=== PATIENT | female | born 1990 | race Hispanic/Latino ===

== ENCOUNTER 2016-10-14 07:08 | Inpatient (IN) | payer OTHER ==
[2016-10-14 07:16] VITALS: BMI 25.2
--- NOTE | 2016-10-14 07:56 | ED PDOC ---
HPI: Abdomen Chief Complaint (Provider): abd pain History Per: Patient History/Exam Limitations: no limitations Outside of [place] travel?: No Current Symptoms Are (Timing): Still Present Severity: Moderate Location Of Pain/Discomfort: RUQ, Epigastric Quality Of Discomfort: Sharp Associated Symptoms: Constipation Exacerbating Factors: None Alleviating Factors: None Last Bowel Movement: Days Ago (3) Abnormal Vaginal Bleeding: No <William Irby - Last Filed: 10/14/16 11:00> <Sarbjit Shelley - Last Filed: 10/14/16 11:37> Time Seen by Provider: 10/14/16 07:13 Chief Complaint (Nursing): Abdominal Pain Additional Complaint(s): 25 y/o F with no PMhx presents c/o epigastric and RUQ pain for the past 3 days associated with constipation. Pain radiates to the back and is constant and sharp. She admits Hx of similar pain in the past and gallstones. Denies vomiting , nausea, constipation, diarrhea, headaches, SOB, dysuria,or CP. Can't recall LMP because she has an IUD and is not having periods since. (William Irby) Supervising Attending Note <William Irby - Last Filed: 10/14/16 11:00> - Supervising Attending Note The Documented history was done by the: Physician Medical Education Coordinator The documented physical exam was done by the: Physician Medical Education Coordinator The documented procedures were done by the: Physician Medical Education Coordinator <Sarbjit Shelley - Last Filed: 10/14/16 11:37> - Notes: Notes:: RUQ pain. Hx gallstones. No chest pain. (Sarbjit Shelley) Past Medical History Reviewed: Nursing Documentation, Vital Signs - Medical History PMH: No Chronic Diseases, Gall Bladder Disease (cholelithiasis) - Surgical History Surgical History: Appendectomy Other surgeries: ankle repair - Family History Family History: States: No Known Family Hx - Social History Current smoker - smoking cessation education provided: No Alcohol: Occasional Drugs: Denies <William Irby - Last Filed: 10/14/16 11:00> - Medical History PMH: Gall Bladder Disease <Sarbjit Shelley - Last Filed: 10/14/16 11:37> Vital Signs: Last Vital Signs Temp 97 F L 10/14/16 07:14 Pulse 80 08/15/17 07:14 Resp BP 117/72 10/14/16 07:14 Pulse Ox 99 10/14/16 11:01 - Allergies Allergies/Adverse Reactions: Allergies Allergy/AdvReac Type Severity Reaction Status Date / Time No Known Allergies Allergy Verified 10/14/16 07:33 Review of Systems ROS Statement: Except As Marked, All Systems Reviewed And Found Negative Gastrointestinal: Positive for: Abdominal Pain, Constipation <William Irby - Last Filed: 10/14/16 11:00> Gastrointestinal: Positive for: Abdominal Pain <Sarbjit Shelley - Last Filed: 10/14/16 11:37> Physical Exam - Reviewed Nursing Documentation Reviewed: Yes Vital Signs Reviewed: Yes - Physical Exam Appears: Positive for: Non-toxic, No Acute Distress Head Exam: Positive for: NORMAL INSPECTION Skin: Positive for: Normal Color, Warm Eye Exam: Positive for: EOMI, PERRL Cardiovascular/Chest: Positive for: Regular Rate, Rhythm. Negative for: Gallop , Murmur Respiratory: Positive for: Normal Breath Sounds. Negative for: Crackles, Wheezing Gastrointestinal/Abdominal: Positive for: Soft, Tenderness (mild tender, RUQ and epigastric). Negative for: Distended, Guarding, Rebound Back: Positive for: Normal Inspection. Negative for: L CVA Tenderness, R CVA Tenderness Neurologic/Psych: Positive for: Alert, Oriented. Negative for: Motor/Sensory Deficits <William Irby - Last Filed: 10/14/16 11:00> - Physical Exam Cardiovascular/Chest: Positive for: Regular Rate, Rhythm Respiratory: Positive for: Normal Breath Sounds Gastrointestinal/Abdominal: Positive for: Tenderness (RUQ) <Sarbjit Shelley - Last Filed: 10/14/16 11:37> - Laboratory Results Result Diagrams: 10/14/16 08:52 10/14/16 08:52 - ECG O2 Sat by Pulse Oximetry: 99 <William Irby - Last Filed: 10/14/16 11:00> - Laboratory Results Result Diagrams: 10/14/16 08:52 10/14/16 08:52 Interpretation Of Abn Labs: ast/alt elevation - ECG Pulse Ox Interpretation: Normal - CT Scan/US us Other Rad Studies (CT/US): Radiology Report Reviewed <Sarbjit Shelley - Last Filed: 10/14/16 11:37> - Progress ED Course And Treament: ALT/AST, AP elevated. Patient still c/o pain when revaluated. Official US report pending but the is thickening of GB wall suggesting poss cholecystitis. After discussing with patient and Sx, she is decided to be admitted to hosp for further management. Patient stable. VS WNL (William Irby) [id number]: Stable. Spoke with Dr. Fischer. States admit if pt. is not feeling better or uncomfortable with outpt management. Pt. still in pain so will need more inpt tx/eval. Spoke with Dr. Ford who will admit. (Sarbjit Shelley) Medical Decision Making <William Irby - Last Filed: 10/14/16 11:00> <Sarbjit Shelley - Last Filed: 10/14/16 11:37> Medical Decision Makin25 y/o F with Hx of gallstones, presents c/o RUQ and epigastric pain associated with constipation Biliary colic vs Renal colic vs Constipation test UA Abd US Toradol IM CBC, CMP, Lipase (William Irby) Disposition - Disposition Disposition Time: 11:00 <William Irby - Last Filed: 10/14/16 11:00> - Patient ED Disposition Is Patient to be Admitted: Yes Counseled Patient/Family Regarding: Studies Performed, Diagnosis - Pt Status Changed To: Hospital Disposition Of: Inpatient - Admit Certification Admit to Inpatient:: After my assessment, the patient will require hospitalization for at least two midnights. This is because of the severity of symptoms shown, intensity of services needed, and/or the medical risk in this patient being treated as an outpatient. - POA Present On Arrival: None <Sarbjit Shelley - Last Filed: 10/14/16 11:37> - Clinical Impression Clinical Impression: Cholecystitis - Disposition Condition: FAIR
[2016-10-14] MEDS ORDERED: Sodium Chloride 0.9% 1,000 ML IV STA (07:57)
[2016-10-14 08:57] LABS: BASO % 0.5 % (0.0-2.0); EOS # 0.1 K/uL (0.0-0.7); HEMATOCRIT 36.2 % (34.0-47.0); LYMPH # 1.4 K/uL (1.0-4.3); LYMPH % 34.9 % (20.0-40.0); MEAN CELL VOLUME 90.2 fl (81.0-99.0); MEAN CORPUSCULAR HEMOGLOBIN 31.1 pg (27.0-31.0); MEAN CORPUSCULAR HGB CONC 34.5 g/dL (33.0-37.0); MEAN PLATELET VOLUME 8.3 fl (7.2-11.7); MONO # 0.4 K/uL (0.0-0.8); NEUT # 2.1 K/uL (1.8-7.0); NEUT % 52.6 % (50.0-75.0); NRBC % 0.1 % (0.0-0.0); RED CELL DISTRIBUTION WIDTH 12.3 % (11.5-14.5); WHITE BLOOD COUNT 3.9 K/uL (4.8-10.8)
[2016-10-14 09:15] LABS: ALB/GLOB RATIO 1.6 (1.0-2.1); ALKALINE PHOSPHATASE 159 U/L (38-126); ALT/SGPT 292 U/L (9-52); AST/SGOT 187 U/L (14-36); BILIRUBIN,TOTAL 1.2 mg/dl (0.2-1.3); BLOOD UREA NITROGEN 11 mg/dl (7-17); CALCIUM 9.3 mg/dL (8.4-10.2); CARBON DIOXIDE 23 mmol/L (22-30); CHLORIDE 106 mmol/L (98-107); GFR AFRICAN-AMERICAN > 60; GLUCOSE,RANDOM 91 mg/dL (65-105); LIPASE 200 U/L (23-300); POTASSIUM 4.6 MMOL/L (3.6-5.0); SODIUM 139 mmol/l (132-148); TOTAL PROTEIN 7.1 G/DL (6.3-8.2)
[2016-10-14] MEDS ORDERED: Piperacillin/Tazobact 3.375 GM in Sodium Chloride 0.9% 100 ML IV STA (11:04)
[2016-10-14] MEDS ORDERED: Piperacillin/Tazobact 3.375 gm Inj IVPB ONE ×2 (11:10→11:30)
[2016-10-14 11:36] LABS: VENOUS BLOOD GAS BASE EXCESS -1.5 mmol/L (0.0-2.0); VENOUS BLOOD GAS PCO2 44 mmHg (40-60); VENOUS BLOOD PH 7.35 (7.32-7.43)
[2016-10-14] MEDS: Sodium Chloride 0.9% 1,000 ML IV SCH ×2 (12:24→22:19)
--- NOTE | 2016-10-14 12:25 | CP.PCM.CON ---
History of Present Illness - History of Present Illness History of Present Illness: Surgery consult 25 y/o F with PSH of appendectomy , R ankle surgery PMH of cholelithiasis , DVT presents to ED with RUQ and epigatric pain. Pain started 3 days ago and is constant, radiates to her R back. reports anorexia. Nothing makes it better or worse. Denies hematuria/hematemesis/dysuria/hematochezia/F/C/N/V/D/CP/SOB/ recent travel/sick contact. Pt reports having similar symptoms in the pasts with biliary colic. No leukocytosis. US shows large multiple gallstones. Surgery is consulted to evaluate for symptomatic cholelithiasis. Review of Systems - Review of Systems Review of Systems: See HPI Past Patient History - Past Social History Alcohol: Occasional Drugs: Denies - HEMATOLOGICAL/ONCOLOGICAL Other/Comment: DVT - GASTROINTESTINAL Hx Gall Bladder Disease: Yes - PSYCHIATRIC Hx Substance Use: No - SURGICAL HISTORY Hx Appendectomy: Yes - ANESTHESIA Hx Anesthesia: Yes Meds Allergies/Adverse Reactions: Allergies Allergy/AdvReac Type Severity Reaction Status Date / Time No Known Allergies Allergy Verified 10/14/16 07:33 - Medications Medications: Current Medications Piperacillin Sod/Tazobactam (Sod 3.375 gm/ Sodium Chloride) 100 mls @ 100 mls/ hr IVPB Q6 JEAN Sodium Chloride (Sodium Chloride 0.9%) 1,000 mls @ 75 mls/hr IV .[id number] [facility] Stop: 10/15/16 12:05 Ketorolac Tromethamine (Toradol) 15 mg IVP Q6 PRN PRN Reason: Pain, moderate (4-7) Ketorolac Tromethamine (Toradol) 30 mg IVP Q6 PRN PRN Reason: Pain, severe (8-10) Ondansetron HCl (Zofran Inj) 4 mg IVP Q6 PRN PRN Reason: Nausea/Vomiting Physical Exam - Constitutional Appears: No Acute Distress - Head Exam Head Exam: ATRAUMATIC, NORMAL INSPECTION, NORMOCEPHALIC - Eye Exam Eye Exam: EOMI, Normal appearance, PERRL Pupil Exam: NORMAL ACCOMODATION, PERRL - ENT Exam ENT Exam: Mucous Membranes Moist, Normal Exam - Neck Exam Neck exam: Positive for: Normal Inspection - Respiratory Exam Respiratory Exam: Clear to Auscultation Bilateral, NORMAL BREATHING PATTERN - Cardiovascular Exam Cardiovascular Exam: REGULAR RHYTHM - GI/Abdominal Exam GI & Abdominal Exam: Normal Bowel Sounds, Soft, Tenderness. absent: Distended, Firm, Guarding, Hernia, Rigid Additional comments: Epigastric/RUQ TTP - Extremities Exam Extremities exam: Positive for: full ROM, normal inspection. Negative for: tenderness - Back Exam Back exam: FULL ROM, NORMAL INSPECTION. absent: CVA tenderness (L), CVA tenderness (R) - Neurological Exam Neurological exam: Alert, CN II-XII Intact, Normal Gait, Oriented x3, Reflexes Normal - Psychiatric Exam Psychiatric exam: Normal Affect, Normal Mood - Skin Skin Exam: Dry, Intact, Normal Color, Warm Results - Vital Signs Recent Vital Signs: Last Vital Signs Temp 97 F L 10/14/16 07:14 Pulse 80 10/14/16 07:14 Resp BP 117/72 10/14/16 07:14 Pulse Ox 99 10/14/16 11:01 - Labs Result Diagrams: 10/14/16 08:52 10/14/16 08:52 Assessment & Plan - Assessment and Plan (Free Text) Assessment: Symptomatic cholelithiasis US: multiple large gallstones -OR Wed for Lap roc -NPO after midnight -IVF DW Dr. Fischer
[2016-10-14] MEDS ORDERED: HYDROmorphone 0.5 mg/0.5 ml ISec IVP PRN (12:32)
[2016-10-14] MEDS ORDERED: Iohexol 240 (50 ml) PO ONE (12:35)
[2016-10-14] MEDS ORDERED: Iohexol 240 (50 ml) ONE (12:48)
--- NOTE | 2016-10-14 14:30 | US ---
HISTORY: eval for pain RUQ COMPARISON: None. TECHNIQUE: Grayscale imaging was performed. FINDINGS: LIVER: Measures 14.9 cm in length. Normal echogenicity of the liver parenchyma. There is mild periportal edema and multiple echogenic foci with ring down artifact in the liver. No mass. No intrahepatic bile duct dilatation. GALLBLADDER: The gallbladder is distended and there are multiple gallstones. There is mild gallbladder wall thickening and positive sonographic Nunez's sign. There are multiple echogenic foci along the gallbladder wall with ring down artifact most compatible with adenomyomatosis. COMMON BILE DUCT: Measures 3.1 mm. No stones. No dilatation. PANCREAS: Obscured by bowel gas. RIGHT KIDNEY: Measures 11.6 cm in length. Normal echogenicity. No calculus, mass, or hydronephrosis. AORTA: No aneurysmal dilatation. IVC: Unremarkable. OTHER FINDINGS: None . IMPRESSION: 1. Findings are concerning for acute calculus cholecystitis. 2. Periportal edema is nonspecific and can be seen in hepatitis or secondary liver congestion. 3. Scattered comet tail artifacts in the liver could represent portal venous or biliary tree gas however can also be seen with Von Meyenberg complexes (biliary hamartomas), a benign condition. If clinically indicated, CT scan of the abdomen may be performed for further evaluation. 4. Gallbladder adenomyomatosis. Important findings were discussed with Dr. Irby in the ER on 10/14/2016 at 11:00 a.m.
[2016-10-14] MEDS ORDERED: Sodium Chloride 0.9% 50 ML IV ONE (14:49)
[2016-10-14] MEDS ORDERED: Iohexol 300 100 ML IJ ONE (14:49)
--- NOTE | 2016-10-14 15:50 | CT ---
PROCEDURE: CT Abdomen and Pelvis with contrast HISTORY: Abdominal pain COMPARISON: None. TECHNIQUE: CT scan of the abdomen and pelvis was performed after intravenous administration of contrast. Oral contrast was not administered. Coronal and sagittal reformatted images were obtained. Contrast dose: 95 cc Omnipaque 300 Radiation dose: Total exam DLP = 754.32 mGy-cm. This CT exam was performed using one or more of the following dose reduction techniques: Automated exposure control, adjustment of the mA and/or kV according to patient size, and/or use of iterative reconstruction technique. FINDINGS: LOWER THORAX: There is a 5 mm subpleural nodule in the right middle lobe. There are tiny subpleural nodules in both lung bases. LIVER: The liver is normal in size and there is homogeneous enhancement. There is mild periportal edema. No evidence of portal venous or biliary gas. No gross lesion or ductal dilatation. GALLBLADDER AND BILE DUCTS: The gallbladder is distended without calcified gallstones. PANCREAS: The pancreas is normal in size and there is homogeneous enhancement. No gross lesion or ductal dilatation. SPLEEN: The spleen is normal in size and there is homogeneous enhancement. ADRENALS: both adrenal glands are normal in size without discrete nodule. KIDNEYS AND URETERS: Both kidneys are normal in size and there is homogeneous enhancement. No hydronephrosis. No solid mass. VASCULATURE: Normal in appearance. No aortic aneurysm. BOWEL: The small bowel loops are normal in caliber. There is moderate amount of stool in the colon. No bowel dilatation or wall thickening. APPENDIX: Surgically absent. PERITONEUM: No free air. Small amount of free fluid in the pelvis is likely physiologic. LYMPH NODES: No enlarged lymph nodes. BLADDER: Normal in appearance. REPRODUCTIVE: The uterus is retroverted and normal in size. An intrauterine device remains in satisfactory position. BONES: No acute fracture. Within normal limits for the patient's age. OTHER FINDINGS: None. IMPRESSION: Mild periportal edema is nonspecific and could be seen in hepatitis are secondary liver congestion. No evidence of portal venous or biliary gas as questioned on ultrasound examination.
--- NOTE | 2016-10-14 15:50 | CARD ---
APPROVED REPORT EKG Measurement Heart [id number] <Conclusion> Normal sinus rhythm Normal ECG
[2016-10-14] MEDS: Piperacillin/Tazobact 3.375 GM in Sodium Chloride 0.9% 100 ML IVPB SCH ×2 (17:22→22:18)
--- NOTE | 2016-10-14 22:17 | CP.PCM.HP ---
History of Present Illness - History of Present Illness History of Present Illness: Hospitalist Admission H&P (Patient was seen and examined at 11:30 AM 10/14/16) Code Status: FULL CODE. NO Living Will/Advance Directive. Designates Yisel Renee [phone] as her Health Care Proxy. Very pleasant 25 year old female who presents via [employer] to the ER with chief complaint of RUQ pain that is radiating to her bilateral lower rib cage in the back. This started roughly 3 days ago and starts roughly 10 to 15 minutes after having something to eat. Because of this she has been eating less and less (just some toast over the past few days). It is sharp in nature and was coming and going but now is constant and therefore that his why she came in. Currently upon FULL ROS the pain is controlled after being given Morphine and Toradol in the ER. 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, NO tobacco, NO alcohol, NO illicit drugs Family Hx: Mom, Dad, 2 sisters, 1 brother: all of which are healthy Present on Admission - Present on Admission Any Indicators Present on Admission: Yes History of DVT/PE: No History of Uncontrolled Diabetes: No Urinary Catheter: No Decubitus Ulcer Present: No Review of Systems - Review of Systems Review of Systems: Please see above Past Patient History - Past Medical History & Family History Pertinent Family History: Please see above - Past Social History Smoking Status: Never Smoked - CARDIAC Hx Cardiac Disorders: No - HEMATOLOGICAL/ONCOLOGICAL Other/Comment: DVT - MUSCULOSKELETAL/RHEUMATOLOGICAL Hx Falls: No - GASTROINTESTINAL Hx Gall Bladder Disease: Yes - PSYCHIATRIC Hx Substance Use: No - SURGICAL HISTORY Hx Appendectomy: Yes Other/Comment: Ankle repair (09/2014) - ANESTHESIA Hx Anesthesia: Yes Hx Anesthesia Reactions: No Hx Malignant Hyperthermia: No Has any member of the family had a problem w/ anesthesia?: No Meds Allergies/Adverse Reactions: Allergies Allergy/AdvReac Type Severity Reaction Status Date / Time No Known Allergies Allergy Verified 10/14/16 07:33 Physical Exam - Constitutional Appears: Non-toxic, No Acute Distress - Head Exam Head Exam: ATRAUMATIC, NORMAL INSPECTION, NORMOCEPHALIC - Eye Exam Eye Exam: EOMI, Normal appearance, PERRL Pupil Exam: NORMAL ACCOMODATION, PERRL - ENT Exam ENT Exam: Mucous Membranes Moist, Normal Exam, Normal External Ear Exam, Normal Oropharynx - Neck Exam Neck exam: Positive for: Normal Inspection - Respiratory Exam Respiratory Exam: Clear to Auscultation Bilateral, NORMAL BREATHING PATTERN Additional comments: NO R/R/W - Cardiovascular Exam Cardiovascular Exam: REGULAR RHYTHM, +S1, +S2 Additional comments: NO M/R/G - GI/Abdominal Exam Additional comments: BSx4 decreased, ND, (+)RUQ Tenderness with Nunez's Sign, NO HSM, NO guarding/ rebound tenderness - Extremities Exam Extremities exam: Positive for: normal inspection Additional comments: Pulses are strong and equal Capillary Refill is 2 seconds NO edema - Neurological Exam Neurological exam: Alert, CN II-XII Intact, Oriented x3 - Psychiatric Exam Psychiatric exam: Normal Affect, Normal Mood Results - Vital Signs Recent Vital Signs: Last Vital Signs Temp 97.7 F 10/14/16 16:07 Pulse 74 10/14/16 16:07 Resp 18 10/14/16 16:07 BP 105/67 10/14/16 16:07 Pulse Ox 99 10/14/16 16:07 - Labs Result Diagrams: 10/14/16 08:52 10/14/16 08:52 Labs: Laboratory Results - last 24 hr 10/14/16 12:33 APTT 28.4 Assessment & Plan (1) Cholecystitis Assessment and Plan: As per U/S Abdomen CT Abdomen did not show portal venous or biliary gas pattern as seen on U/S Abdomen Zosyn 3.75 gm IV Q6H NS at 75 ml per hour Toradol 15 mg IV Q6H PRN Moderate Pain Toradol 30 mg IV Q6H PRN Severe Pain Zofran 4 mg IV Q6H PRN N/V Surgery Dr. Fischer For OR 10/15/16 morning Patient is medically cleared for surgery Status: Acute (2) Elevated LFTs Assessment and Plan: Could be secondary to the above Monitor Status: Acute (3) Prophylactic measure Assessment and Plan: Protonix 40 mg PO 1x/day Bilateral SCDs NPO after midnight F/U Morning 10/15/16 labs Status: Acute
[2016-10-15] MEDS: Pantoprazole 40 mg EC Tab PO SCH ×2 (00:08→09:00)
[2016-10-15] MEDS: Sodium Chloride 0.9% 1,000 ML IV SCH ×2 (02:15→23:35)
[2016-10-15] MEDS: Piperacillin/Tazobact 3.375 GM in Sodium Chloride 0.9% 100 ML IVPB SCH ×4 (04:14→22:21)
[2016-10-15 06:36] LABS: BASO % 0.4 % (0.0-2.0); EOS # 0.1 K/uL (0.0-0.7); EOS % 1.2 % (0.0-4.0); HEMATOCRIT 34.6 % (34.0-47.0); LYMPH # 1.4 K/uL (1.0-4.3); MEAN CELL VOLUME 91.4 fl (81.0-99.0); MEAN CORPUSCULAR HEMOGLOBIN 31.1 pg (27.0-31.0); MEAN PLATELET VOLUME 9.1 fl (7.2-11.7); MONO # 0.4 K/uL (0.0-0.8); MONO % 8.5 % (0.0-10.0); NEUT # 2.7 K/uL (1.8-7.0); NEUT % 58.9 % (50.0-75.0); RED CELL DISTRIBUTION WIDTH 12.3 % (11.5-14.5); WHITE BLOOD COUNT 4.6 K/uL (4.8-10.8)
[2016-10-15 06:49] LABS: ALB/GLOB RATIO 1.4 (1.0-2.1); ALKALINE PHOSPHATASE 154 U/L (38-126); ALT/SGPT 229 U/L (9-52); AST/SGOT 153 U/L (14-36); BILIRUBIN,TOTAL 5.2 mg/dl (0.2-1.3); BLOOD UREA NITROGEN 8 mg/dl (7-17); CALCIUM 8.5 mg/dL (8.4-10.2); CARBON DIOXIDE 17 mmol/L (22-30); CHLORIDE 107 mmol/L (98-107); GFR AFRICAN-AMERICAN > 60; GLUCOSE,RANDOM 57 mg/dL (65-105); POTASSIUM 4.1 MMOL/L (3.6-5.0); SODIUM 137 mmol/l (132-148); TOTAL PROTEIN 6.1 G/DL (6.3-8.2)
[2016-10-15] MEDS ORDERED: Propofol 10 mg/ml Inj (20 ML) ONE (08:49)
[2016-10-15] MEDS ORDERED: Lidocaine 4% (Laryng-O-Jet) Kit MM ONE (08:50)
[2016-10-15] MEDS ORDERED: Rocuronium 10 mg/ml (5 ml) ONE (08:50)
[2016-10-15] MEDS ORDERED: Bupivacaine 0.5% Inj(30mL) ONE (09:00)
[2016-10-15] MEDS ORDERED: Succinylcholine 200 mg/10 ml Inj IV ONE (09:08)
[2016-10-15] MEDS ORDERED: Dexamethasone 4 mg/1 ml ONE (09:19)
--- NOTE | 2016-10-15 11:19 | MRI ---
MRCP Indication: Evaluate for choledocholithiasis Technique: Multiplanar, multisequence MR images of the abdomen were obtained, including heavily T2 weighted MRCP images of the biliary system. Rotating maximum intensity projection images of the biliary system were generated. A total of 557 images were submitted for review. Comparison: CT of the abdomen pelvis with contrast performed 10/14/16, limited abdominal ultrasound performed 10/14/16 Findings: Cholelithiasis. There is no intrahepatic biliary ductal dilatation. The common bile duct is not seen within throughout entirety. No evidence of common bile duct dilatation or obstructing calculus. No evidence of pancreatic duct dilatation. Mild periportal edema. Send The visualized portions of the liver, adrenal glands, kidneys, spleen, and pancreas appear otherwise unremarkable. No bulky abdominal lymphadenopathy is seen. No ascites. No acute osseous abnormality is detected. Impression: Cholelithiasis. Suboptimal evaluation of the common bile duct which is not seen throughout its entirety. No evidence of common bile duct dilatation or obstructing calculus. Mild periportal edema.
--- NOTE | 2016-10-15 11:57 | CP.PCM.PN ---
Subjective - Date & Time of Evaluation Date of Evaluation: 10/15/16 Time of Evaluation: 11:56 - Subjective Subjective: Pt bilirubin up to 5. will get MRCP, GI consult, hold off lap roc for now Objective - Vital Signs/Intake and Output Vital Signs (last 24 hours): Temp Pulse Resp BP Pulse Ox 98.7 F 93 H 20 95/55 L 97 10/15/16 08:24 10/15/16 08:24 10/15/16 08:24 10/15/16 08:24 10/15/16 08:24 - Medications Medications: Current Medications Acetaminophen (Tylenol 325mg Tab) 650 mg PO Q4 PRN PRN Reason: Fever >100.4 F Hydromorphone HCl (Dilaudid) 0.5 mg IVP Q4 PRN PRN Reason: Pain, moderate (4-7) Piperacillin Sod/Tazobactam (Sod 3.375 gm/ Sodium Chloride) 100 mls @ 100 mls/ hr IVPB Q6 [facility] Last Admin: 10/15/16 11:18 Dose: 100 mls/hr Sodium Chloride (Sodium Chloride 0.9%) 1,000 mls @ 75 mls/hr IV .[id number] [facility] Stop: 10/15/16 12:05 Last Admin: 10/15/16 02:15 Dose: Not Given Ketorolac Tromethamine (Toradol) 15 mg IVP Q6 PRN PRN Reason: Pain, moderate (4-7) Ketorolac Tromethamine (Toradol) 30 mg IVP Q6 PRN PRN Reason: Pain, severe (8-10) Ondansetron HCl (Zofran Inj) 4 mg IVP Q6 PRN PRN Reason: Nausea/Vomiting Last Admin: 10/14/16 16:06 Dose: 4 mg Pantoprazole Sodium (Protonix Ec Tab) 40 mg PO DAILY [facility] Last Admin: 10/15/16 09:00 Dose: Not Given - Labs Labs: 10/15/16 05:30 10/15/16 05:30 PT 11.9 Seconds (9.8-13.1) 10/15/16 05:30 INR 1.2 (0.9-1.2) 10/15/16 05:30 APTT 28.4 Seconds (25.6-37.1) 10/14/16 12:33
--- NOTE | 2016-10-15 13:30 | CP.PCM.PN ---
Subjective - Date & Time of Evaluation Date of Evaluation: 10/15/16 Time of Evaluation: 11:30 - Subjective Subjective: Patient seen and examined bedside. Pain is better but still with some RUQ tenderness. Tolerating liquid diet Hemodynamically stable, afebrile MRCp showing no CBD stone Objective - Vital Signs/Intake and Output Vital Signs (last 24 hours): Temp Pulse Resp BP Pulse Ox 98.7 F 93 H 20 95/55 L 97 10/15/16 08:24 10/15/16 08:24 10/15/16 08:24 10/15/16 08:24 10/15/16 08:24 - Medications Medications: Current Medications Acetaminophen (Tylenol 325mg Tab) 650 mg PO Q4 PRN PRN Reason: Fever >100.4 F Hydromorphone HCl (Dilaudid) 0.5 mg IVP Q4 PRN PRN Reason: Pain, moderate (4-7) Piperacillin Sod/Tazobactam (Sod 3.375 gm/ Sodium Chloride) 100 mls @ 100 mls/ hr IVPB Q6 [facility] Last Admin: 10/15/16 11:18 Dose: 100 mls/hr Ketorolac Tromethamine (Toradol) 15 mg IVP Q6 PRN PRN Reason: Pain, moderate (4-7) Ketorolac Tromethamine (Toradol) 30 mg IVP Q6 PRN PRN Reason: Pain, severe (8-10) Ondansetron HCl (Zofran Inj) 4 mg IVP Q6 PRN PRN Reason: Nausea/Vomiting Last Admin: 10/14/16 16:06 Dose: 4 mg Pantoprazole Sodium (Protonix Ec Tab) 40 mg PO DAILY [facility] Last Admin: 10/15/16 09:00 Dose: Not Given - Labs Labs: 10/15/16 05:30 10/15/16 05:30 PT 11.9 Seconds (9.8-13.1) 10/15/16 05:30 INR 1.2 (0.9-1.2) 10/15/16 05:30 APTT 28.4 Seconds (25.6-37.1) 10/14/16 12:33 - Constitutional Appears: Non-toxic, No Acute Distress - Head Exam Head Exam: ATRAUMATIC, NORMAL INSPECTION, NORMOCEPHALIC - Eye Exam Eye Exam: EOMI, Normal appearance, PERRL Pupil Exam: NORMAL ACCOMODATION - ENT Exam ENT Exam: Mucous Membranes Moist, Normal Exam - Neck Exam Neck Exam: Full ROM, Normal Inspection - Respiratory Exam Respiratory Exam: Clear to Ausculation Bilateral, NORMAL BREATHING PATTERN. absent: Rales, Rhonchi, Wheezes - Cardiovascular Exam Cardiovascular Exam: REGULAR RHYTHM, RRR, +S1, +S2. absent: JVD - GI/Abdominal Exam GI & Abdominal Exam: Soft, Tenderness (RUQ ), Normal Bowel Sounds. absent: Distended, Guarding, Rebound - Rectal Exam Rectal Exam: Deferred - Extremities Exam Extremities Exam: Full ROM, Normal Capillary Refill, Normal Inspection - Back Exam Back Exam: NORMAL INSPECTION - Neurological Exam Neurological Exam: Alert, Awake, CN II-XII Intact, Normal Gait, Oriented x3 - Psychiatric Exam Psychiatric exam: Normal Affect, Normal Mood - Skin Skin Exam: Dry, Warm Additional comments: jaundice Assessment and Plan - Assessment and Plan (Free Text) Assessment: 25 y/o F with PMH DVt post R ankle surgery and cholelithiasis presented to ED with RUQ and epigatric pain that started 3 days ago and is constant US showed cholelithiasis and cholecystitis . Patient admitted to med-surg , kept NPO, started on IVF , Zosyn IV and pain management .Surgery consulted. 1. Acute Cholelystitis and cholelithiasis stable, pain better Abd Us showed cholelithiasis Total bilirubin trending up today from 1 to 5.2 MRCP showed no CBD stone continue pain mangement, IVF and Zosyn Iv GI consulted . Since patient has no CBD stone no need for ERCP Repeat CMP in Am Check Hepatitis panel started liquid diet 2. Elevated LFTs Could be secondary to the above check hepatitis panel 3. Prophylactic measure SCD NPO after midnight
[2016-10-16] MEDS: Piperacillin/Tazobact 3.375 GM in Sodium Chloride 0.9% 100 ML IVPB SCH ×4 (05:08→22:00)
[2016-10-16 06:12] LABS: BASO % 0.4 % (0.0-2.0); EOS # 0.1 K/uL (0.0-0.7); EOS % 1.6 % (0.0-4.0); HEMATOCRIT 35.5 % (34.0-47.0); LYMPH # 1.2 K/uL (1.0-4.3); LYMPH % 29.8 % (20.0-40.0); MEAN CORPUSCULAR HEMOGLOBIN 31.2 pg (27.0-31.0); MEAN CORPUSCULAR HGB CONC 34.3 g/dL (33.0-37.0); MEAN PLATELET VOLUME 8.9 fl (7.2-11.7); MONO # 0.4 K/uL (0.0-0.8); MONO % 9.7 % (0.0-10.0); NEUT # 2.4 K/uL (1.8-7.0); NEUT % 58.5 % (50.0-75.0); NRBC % 0.1 % (0.0-0.0); RED CELL DISTRIBUTION WIDTH 12.6 % (11.5-14.5)
[2016-10-16 06:23] LABS: ALB/GLOB RATIO 1.3 (1.0-2.1); ALKALINE PHOSPHATASE 172 U/L (38-126); ALT/SGPT 205 U/L (9-52); AST/SGOT 121 U/L (14-36); BILIRUBIN,TOTAL 5.4 mg/dl (0.2-1.3); BLOOD UREA NITROGEN 4 mg/dl (7-17); CALCIUM 8.5 mg/dL (8.4-10.2); CARBON DIOXIDE 17 mmol/L (22-30); CHLORIDE 109 mmol/L (98-107); GFR AFRICAN-AMERICAN > 60; GLUCOSE,RANDOM 74 mg/dL (65-105); POTASSIUM 3.9 MMOL/L (3.6-5.0); SODIUM 138 mmol/l (132-148); TOTAL PROTEIN 6.5 G/DL (6.3-8.2)
--- NOTE | 2016-10-16 09:00 | CP.PCM.PN ---
Subjective - Date & Time of Evaluation Date of Evaluation: 10/16/16 Time of Evaluation: 10:00 - Subjective Subjective: Patient seen and examined bedside. Feeling better. Denies abdominal pain, nausea ,vomiting. Hemodynamically stable, afebrile. No acute issues overnight bilirubin still elevated 5.4 Objective - Vital Signs/Intake and Output Vital Signs (last 24 hours): Temp Pulse Resp BP Pulse Ox 98.4 F 96 H 18 92/55 L 96 10/16/16 07:41 10/16/16 07:41 10/16/16 07:41 10/16/16 07:41 10/16/16 07:41 - Medications Medications: Current Medications Acetaminophen (Tylenol 325mg Tab) 650 mg PO Q4 PRN PRN Reason: Fever >100.4 F Last Admin: 10/15/16 16:52 Dose: 650 mg Hydromorphone HCl (Dilaudid) 0.5 mg IVP Q4 PRN PRN Reason: Pain, moderate (4-7) Piperacillin Sod/Tazobactam (Sod 3.375 gm/ Sodium Chloride) 100 mls @ 100 mls/ hr IVPB Q6 [facility] Last Admin: 10/16/16 05:08 Dose: 100 mls/hr Sodium Chloride (Sodium Chloride 0.9%) 1,000 mls @ 75 mls/hr IV .[id number] [facility] Stop: 10/16/16 22:38 Last Admin: 10/15/16 23:35 Dose: 75 mls/hr Ketorolac Tromethamine (Toradol) 15 mg IVP Q6 PRN PRN Reason: Pain, moderate (4-7) Ketorolac Tromethamine (Toradol) 30 mg IVP Q6 PRN PRN Reason: Pain, severe (8-10) Ondansetron HCl (Zofran Inj) 4 mg IVP Q6 PRN PRN Reason: Nausea/Vomiting Last Admin: 10/14/16 16:06 Dose: 4 mg Pantoprazole Sodium (Protonix Ec Tab) 40 mg PO DAILY [facility] Last Admin: 10/15/16 09:00 Dose: Not Given - Labs Labs: 10/16/16 04:50 10/16/16 04:50 PT 11.9 Seconds (9.8-13.1) 10/15/16 05:30 INR 1.2 (0.9-1.2) 10/15/16 05:30 APTT 28.4 Seconds (25.6-37.1) 10/14/16 12:33 - Constitutional Appears: Non-toxic, No Acute Distress - Head Exam Head Exam: ATRAUMATIC, NORMAL INSPECTION, NORMOCEPHALIC - Eye Exam Eye Exam: EOMI, Normal appearance, PERRL Pupil Exam: NORMAL ACCOMODATION - ENT Exam ENT Exam: Mucous Membranes Moist, Normal Exam - Neck Exam Neck Exam: Full ROM, Normal Inspection - Respiratory Exam Respiratory Exam: Clear to Ausculation Bilateral, NORMAL BREATHING PATTERN. absent: Rales, Rhonchi, Wheezes - Cardiovascular Exam Cardiovascular Exam: REGULAR RHYTHM, RRR, +S1, +S2. absent: JVD - GI/Abdominal Exam GI & Abdominal Exam: Soft, Normal Bowel Sounds. absent: Distended, Guarding, Tenderness, Rebound - Rectal Exam Rectal Exam: Deferred - Extremities Exam Extremities Exam: Full ROM, Normal Capillary Refill, Normal Inspection. absent : Calf Tenderness, Pedal Edema - Back Exam Back Exam: NORMAL INSPECTION - Neurological Exam Neurological Exam: Alert, Awake, CN II-XII Intact, Oriented x3 - Psychiatric Exam Psychiatric exam: Normal Affect, Normal Mood - Skin Skin Exam: Dry, Intact, Normal Color, Warm Assessment and Plan - Assessment and Plan (Free Text) Assessment: 25 y/o F with PMH DVt post R ankle surgery and cholelithiasis presented to ED with RUQ and epigatric pain that started 3 days ago and is constant US showed cholelithiasis and cholecystitis . Patient admitted to med-surg , kept NPO, started on IVF , Zosyn IV and pain management .Surgery consulted. Her bilirubin trended up so GI was consulted and MRCp ordered. MRCP showed no CBD syone At present patient doing well, pain free but bilirubin still elevated. 1. Acute Cholelystitis and cholelithiasis stable, pain better Abd Us showed cholelithiasis Total bilirubin trended up rom 1 to 5.2 and today 5.4 MRCP showed no CBD stone continue pain mangement, IVF and Zosyn Iv GI consulted . Since patient has no CBD stone no need for ERCP. Most likely she passed the stone As per surgery will need to monitor closely LFT-s and once bilirubin is close to normal patient will need cholecystectomy Hepatitis panel is negative continue liquid diet 2. Elevated LFTs Could be secondary to the above hepatitis panel is negative 3. Prophylactic measure SCD
--- NOTE | 2016-10-16 10:03 | CP.PCM.PN ---
<Felipe Nash - Last Filed: 10/16/16 10:00> Subjective - Date & Time of Evaluation Date of Evaluation: 10/16/16 Time of Evaluation: 10:00 - Subjective Subjective: Surgery: Dr. Fischer Pt seen and examined. Resting comfortably in bed. Pain controlled. No N/V. No F/ C. Objective - Vital Signs/Intake and Output Vital Signs (last 24 hours): Temp Pulse Resp BP Pulse Ox 98.4 F 96 H 18 92/55 L 96 10/16/16 07:41 10/16/16 07:41 10/16/16 07:41 10/16/16 07:41 10/16/16 07:41 - Medications Medications: Current Medications Acetaminophen (Tylenol 325mg Tab) 650 mg PO Q4 PRN PRN Reason: Fever >100.4 F Last Admin: 10/15/16 16:52 Dose: 650 mg Hydromorphone HCl (Dilaudid) 0.5 mg IVP Q4 PRN PRN Reason: Pain, moderate (4-7) Piperacillin Sod/Tazobactam (Sod 3.375 gm/ Sodium Chloride) 100 mls @ 100 mls/ hr IVPB Q6 [facility] Last Admin: 10/16/16 05:08 Dose: 100 mls/hr Sodium Chloride (Sodium Chloride 0.9%) 1,000 mls @ 75 mls/hr IV .[id number] [facility] Stop: 10/16/16 22:38 Last Admin: 10/15/16 23:35 Dose: 75 mls/hr Ketorolac Tromethamine (Toradol) 15 mg IVP Q6 PRN PRN Reason: Pain, moderate (4-7) Ketorolac Tromethamine (Toradol) 30 mg IVP Q6 PRN PRN Reason: Pain, severe (8-10) Ondansetron HCl (Zofran Inj) 4 mg IVP Q6 PRN PRN Reason: Nausea/Vomiting Last Admin: 10/14/16 16:06 Dose: 4 mg Pantoprazole Sodium (Protonix Ec Tab) 40 mg PO DAILY [facility] Last Admin: 10/15/16 09:00 Dose: Not Given - Labs Labs: 10/16/16 04:50 10/16/16 04:50 PT 11.9 Seconds (9.8-13.1) 10/15/16 05:30 INR 1.2 (0.9-1.2) 10/15/16 05:30 APTT 28.4 Seconds (25.6-37.1) 10/14/16 12:33 - Constitutional Appears: Non-toxic, No Acute Distress - Head Exam Head Exam: ATRAUMATIC, NORMOCEPHALIC - Eye Exam Eye Exam: EOMI - Neck Exam Neck Exam: Full ROM - Respiratory Exam Respiratory Exam: NORMAL BREATHING PATTERN. absent: Accessory Muscle Use, Respiratory Distress - GI/Abdominal Exam GI & Abdominal Exam: Soft, Tenderness (RUQ). absent: Distended, Firm, Guarding , Rigid, Rebound - Extremities Exam Extremities Exam: absent: Calf Tenderness, Pedal Edema - Neurological Exam Neurological Exam: Alert, Awake, Oriented x3 - Psychiatric Exam Psychiatric exam: Normal Affect, Normal Mood Assessment and Plan - Assessment and Plan (Free Text) Assessment: 25F w. cholelithiasis and transaminitis -Tbili trending up, f/u GI recommendation -lap roc on hold until Tbili trends down WNL -c/w current medical management -will d/w attending Zemaitis PGY3 <Mick Fischer - Last Filed: 10/16/16 11:24> Objective - Vital Signs/Intake and Output Vital Signs (last 24 hours): Temp Pulse Resp BP Pulse Ox 98.4 F 96 H 18 92/55 L 96 10/16/16 07:41 10/16/16 07:41 10/16/16 07:41 10/16/16 07:41 10/16/16 07:41 - Medications Medications: Current Medications Acetaminophen (Tylenol 325mg Tab) 650 mg PO Q4 PRN PRN Reason: Fever >100.4 F Last Admin: 10/15/16 16:52 Dose: 650 mg Hydromorphone HCl (Dilaudid) 0.5 mg IVP Q4 PRN PRN Reason: Pain, moderate (4-7) Piperacillin Sod/Tazobactam (Sod 3.375 gm/ Sodium Chloride) 100 mls @ 100 mls/ hr IVPB Q6 [facility] Last Admin: 10/16/16 10:01 Dose: 100 mls/hr Sodium Chloride (Sodium Chloride 0.9%) 1,000 mls @ 75 mls/hr IV .[id number] [facility] Stop: 10/16/16 22:38 Last Admin: 10/15/16 23:35 Dose: 75 mls/hr Ketorolac Tromethamine (Toradol) 15 mg IVP Q6 PRN PRN Reason: Pain, moderate (4-7) Ketorolac Tromethamine (Toradol) 30 mg IVP Q6 PRN PRN Reason: Pain, severe (8-10) Ondansetron HCl (Zofran Inj) 4 mg IVP Q6 PRN PRN Reason: Nausea/Vomiting Last Admin: 10/14/16 16:06 Dose: 4 mg Pantoprazole Sodium (Protonix Ec Tab) 40 mg PO DAILY [facility] Last Admin: 10/15/16 09:00 Dose: Not Given - Labs Labs: 10/16/16 04:50 10/16/16 04:50 PT 11.9 Seconds (9.8-13.1) 10/15/16 05:30 INR 1.2 (0.9-1.2) 10/15/16 05:30 APTT 28.4 Seconds (25.6-37.1) 10/14/16 12:33 Assessment and Plan - Assessment and Plan (Free Text) Plan: cont to follow bilirubin, must be closer to normal prior to lap roc
[2016-10-16] MEDS: Pantoprazole 40 mg EC Tab PO SCH (13:00)
[2016-10-16] MEDS: Sodium Chloride 0.9% 1,000 ML IV SCH (20:47)
[2016-10-17] MEDS: Piperacillin/Tazobact 3.375 GM in Sodium Chloride 0.9% 100 ML IVPB SCH ×4 (04:38→21:29)
[2016-10-17 07:10] LABS: BASO % 0.5 % (0.0-2.0); EOS # 0.1 K/uL (0.0-0.7); EOS % 1.9 % (0.0-4.0); HEMATOCRIT 35.6 % (34.0-47.0); LYMPH # 1.2 K/uL (1.0-4.3); LYMPH % 31.2 % (20.0-40.0); MEAN CELL VOLUME 91.2 fl (81.0-99.0); MEAN CORPUSCULAR HEMOGLOBIN 31.2 pg (27.0-31.0); MEAN CORPUSCULAR HGB CONC 34.2 g/dL (33.0-37.0); MEAN PLATELET VOLUME 8.3 fl (7.2-11.7); MONO # 0.4 K/uL (0.0-0.8); MONO % 10.6 % (0.0-10.0); NEUT # 2.1 K/uL (1.8-7.0); NEUT % 55.8 % (50.0-75.0); NRBC % 0.1 % (0.0-0.0); RED CELL DISTRIBUTION WIDTH 12.8 % (11.5-14.5); WHITE BLOOD COUNT 3.7 K/uL (4.8-10.8)
[2016-10-17 07:23] LABS: ALB/GLOB RATIO 1.5 (1.0-2.1); ALKALINE PHOSPHATASE 177 U/L (38-126); ALT/SGPT 184 U/L (9-52); AST/SGOT 96 U/L (14-36); BILIRUBIN,TOTAL 5.6 mg/dl (0.2-1.3); BLOOD UREA NITROGEN 4 mg/dl (7-17); CALCIUM 8.8 mg/dL (8.4-10.2); CARBON DIOXIDE 16 mmol/L (22-30); CHLORIDE 108 mmol/L (98-107); GFR AFRICAN-AMERICAN > 60; GLUCOSE,RANDOM 63 mg/dL (65-105); POTASSIUM 4.2 MMOL/L (3.6-5.0); SODIUM 139 mmol/l (132-148); TOTAL PROTEIN 6.7 G/DL (6.3-8.2)
--- NOTE | 2016-10-17 07:31 | CP.PCM.PN ---
<Felipe Nsah - Last Filed: 10/17/16 13:50> Subjective - Date & Time of Evaluation Date of Evaluation: 10/17/16 Time of Evaluation: 07:28 - Subjective Subjective: Surgery: Dr. Fischer Pt seen and examined. States that she had abd pain overnight. Pain resolved this AM. No N/V. No F/C. Pt is frustrated, if she can't have surgery soon, she would like to go home w. PO meds and wait for bilirubin to return to normal levels. Objective - Vital Signs/Intake and Output Vital Signs (last 24 hours): Temp Pulse Resp BP Pulse Ox 98.4 F 85 18 95/57 L 98 10/17/16 01:00 10/17/16 01:00 10/17/16 01:00 10/17/16 01:00 10/17/16 01:00 - Medications Medications: Current Medications Acetaminophen (Tylenol 325mg Tab) 650 mg PO Q4 PRN PRN Reason: Fever >100.4 F Last Admin: 10/15/16 16:52 Dose: 650 mg Hydromorphone HCl (Dilaudid) 0.5 mg IVP Q4 PRN PRN Reason: Pain, moderate (4-7) Piperacillin Sod/Tazobactam (Sod 3.375 gm/ Sodium Chloride) 100 mls @ 100 mls/ hr IVPB Q6 [facility] Last Admin: 10/17/16 04:38 Dose: 100 mls/hr Ketorolac Tromethamine (Toradol) 15 mg IVP Q6 PRN PRN Reason: Pain, moderate (4-7) Ketorolac Tromethamine (Toradol) 30 mg IVP Q6 PRN PRN Reason: Pain, severe (8-10) Last Admin: 10/16/16 17:16 Dose: 30 mg Ondansetron HCl (Zofran Inj) 4 mg IVP Q6 PRN PRN Reason: Nausea/Vomiting Last Admin: 10/14/16 16:06 Dose: 4 mg Pantoprazole Sodium (Protonix Ec Tab) 40 mg PO DAILY [facility] Last Admin: 10/16/16 13:00 Dose: 40 mg - Labs Labs: 10/17/16 07:00 10/16/16 04:50 PT 11.9 Seconds (9.8-13.1) 10/15/16 05:30 INR 1.2 (0.9-1.2) 10/15/16 05:30 APTT 28.4 Seconds (25.6-37.1) 10/14/16 12:33 - Constitutional Appears: Non-toxic, No Acute Distress - Head Exam Head Exam: ATRAUMATIC, NORMOCEPHALIC - Eye Exam Eye Exam: EOMI, Scleral icterus - ENT Exam ENT Exam: Mucous Membranes Moist - Neck Exam Neck Exam: Full ROM - Respiratory Exam Respiratory Exam: NORMAL BREATHING PATTERN. absent: Accessory Muscle Use, Respiratory Distress - GI/Abdominal Exam GI & Abdominal Exam: Soft. absent: Distended, Firm, Guarding, Rigid, Tenderness , Rebound - Neurological Exam Neurological Exam: Alert, Awake, Oriented x3 - Skin Skin Exam: Diaphoretic Assessment and Plan - Assessment and Plan (Free Text) Assessment: 25F w. cholelithiasis and transaminitis -Tbili trending up: d/w Dr. Donaldson, no need to repeat MRCP at this time -lap roc on hold until Tbili trends down WNL -c/w current medical management -Pt currently light headed/dizzy w. minimal PO intake -1L bolus, c/w IVF -If pt is able to tolerate diet, light headedness resolves, and she can ambulate w. out difficulty, she can be clear for D/C from surgical standpoint w. PO abx and pain meds, pt can have Tbili checked out pt and schedule roc electively once medically optimized -Pt has tentative appointment set up w. Dr. Kodak Larry in [place], [place] for Saturday 10/21 at 12:45 -Office #: [phone] -will continue to follow -will d/w attending Zemaitis PGY3 <Mick Fischer - Last Filed: 10/17/16 13:58> Objective - Vital Signs/Intake and Output Vital Signs (last 24 hours): Temp Pulse Resp BP Pulse Ox 98.6 F 79 20 99/61 L 97 10/17/16 08:18 10/17/16 08:18 10/17/16 08:18 10/17/16 08:18 10/17/16 08:18 - Medications Medications: Current Medications Acetaminophen (Tylenol 325mg Tab) 650 mg PO Q4 PRN PRN Reason: Fever >100.4 F Last Admin: 10/15/16 16:52 Dose: 650 mg Heparin Sodium (Porcine) (Heparin) 5,000 units SC Q12 [facility] PRN Reason: Protocol Hydromorphone HCl (Dilaudid) 0.5 mg IVP Q4 PRN PRN Reason: Pain, moderate (4-7) Piperacillin Sod/Tazobactam (Sod 3.375 gm/ Sodium Chloride) 100 mls @ 100 mls/ hr IVPB Q6 [facility] Last Admin: 10/17/16 11:00 Dose: 100 mls/hr Sodium Chloride (Sodium Chloride 0.9%) 1,000 mls @ 999 mls/hr IV .Q1H1M [facility] Stop: 10/18/16 09:06 Last Admin: 10/17/16 09:50 Dose: Not Given Dextrose/Sodium Chloride (Dextrose 5%/0.45% Ns 1000 Ml) 1,000 mls @ 110 mls/hr IV .Q9H6M [facility] Stop: 10/18/16 10:07 Last Admin: 10/17/16 10:57 Dose: 110 mls/hr Ketorolac Tromethamine (Toradol) 15 mg IVP Q6 PRN PRN Reason: Pain, moderate (4-7) Ketorolac Tromethamine (Toradol) 30 mg IVP Q6 PRN PRN Reason: Pain, severe (8-10) Last Admin: 10/16/16 17:16 Dose: 30 mg Ondansetron HCl (Zofran Inj) 4 mg IVP Q6 PRN PRN Reason: Nausea/Vomiting Last Admin: 10/14/16 16:06 Dose: 4 mg Pantoprazole Sodium (Protonix Ec Tab) 40 mg PO DAILY [facility] Last Admin: 10/17/16 09:52 Dose: 40 mg - Labs Labs: 10/17/16 07:00 10/17/16 07:00 PT 11.9 Seconds (9.8-13.1) 10/15/16 05:30 INR 1.2 (0.9-1.2) 10/15/16 05:30 APTT 28.4 Seconds (25.6-37.1) 10/14/16 12:33 Assessment and Plan - Assessment and Plan (Free Text) Plan: discussed at length with pt, should be discharged home and f/u outpt with her private physician
[2016-10-17] MEDS ORDERED: Potassium Ch 20mEq in D5-1/2NS 1,000 ML IV SCH (07:45)
[2016-10-17] MEDS ORDERED: Dextrose 5%/0.45% NS 1,000 ML IV SCH (08:30)
[2016-10-17] MEDS: Sodium Chloride 0.9% 1,000 ML IV SCH ×8 (09:47→16:58)
[2016-10-17] MEDS: Pantoprazole 40 mg EC Tab PO SCH (09:52)
[2016-10-17] MEDS: Dextrose 5%/0.45% NS 1,000 ML IV SCH ×2 (10:57→21:21)
--- NOTE | 2016-10-17 14:01 | CON ---
DATE: 10/15/2016 REASON FOR CONSULTATION: Elevated LFTs. REFERRING DOCTOR: Dr. Santo Ford. HISTORY OF PRESENT ILLNESS: This is a very pleasant 25-year-old female, said she was admitted because she was seen at an urgent care center with elevated LFTs and abdominal pain, presented to the hospital for essentially biliary colic. The pain started about 3 to 4 days prior, lasted for 10 to 15 minutes in the right upper quadrant area, radiated to the back. No fever and chills. No nausea, no vomiting. Currently, lying in the bed comfortably, in no apparent distress. PAST MEDICAL HISTORY: As above. SURGICAL HISTORY: Ankle repair and appendectomy. SOCIAL HISTORY: Noncontributory. REVIEW OF SYSTEMS: All other systems have been reviewed and are negative apart from the HPI. PHYSICAL EXAMINATION: VITAL SIGNS: During the hospital grossly unremarkable. GENERAL: A pleasant young female lying in bed, comfortable, in no apparent distress. HEENT: Head normocephalic and atraumatic. Eyes: Pupils are equal, round, and reactive to light bilaterally. Mild conjunctival icterus. No pallor. NECK: Supple. Normal range of motion. No lymphadenopathy appreciated. LUNGS: Coarse breath sounds bilaterally. HEART: S1 and S2. Regular rate and rhythm. No murmurs appreciated. ABDOMEN: Soft, nontender. Bowel sounds present. No rebound. No guarding. RECTAL: Deferred. EXTREMITIES: Pulses felt bilaterally. SKIN: Warm, dry, and intact. NEUROLOGIC: A and O x3. LABORATORY DATA: All labs and radiology have been reviewed. WBC of 4.6 and hemoglobin of 11.8. Total bilirubin was normal on admission at 5.2, AST 153, ALT 239, alkaline phosphatase 159. MRCP is negative for CBD stones. ASSESSMENT AND PLAN: This is a 25-year-old female with biliary colic and elevated liver function tests. Given the MRI is negative, I suspect she has passed the stone. We will also get fractionation of bilirubin, laparoscopic cholecystectomy when able. No further work up from GI noted. Thank you for the consult. Eder Massey MD/ PhD cc: Santo Ford DO
--- NOTE | 2016-10-17 14:59 | CP.PCM.PN ---
Subjective - Date & Time of Evaluation Date of Evaluation: 10/17/16 Time of Evaluation: 11:00 - Subjective Subjective: Patient seen and examined bedside. With episode of severe upper abdominal pain radiating to the back yesterday that subsided with pain medication. Today feeling dizzy .Patient feeling somewhat down emotionally since she can not have the surgery just yet. patient and mom would like to go home to [place] and follow up with er surgeon Hemodynamically stable, afebrile WBc 3.7 k AST/ALT 96/184 Alk phoisph 177 T bili 5.6 Objective - Vital Signs/Intake and Output Vital Signs (last 24 hours): Temp Pulse Resp BP Pulse Ox 98.6 F 79 20 99/61 L 97 10/17/16 08:18 10/17/16 08:18 10/17/16 08:18 10/17/16 08:18 10/17/16 08:18 - Medications Medications: Current Medications Acetaminophen (Tylenol 325mg Tab) 650 mg PO Q4 PRN PRN Reason: Fever >100.4 F Last Admin: 10/15/16 16:52 Dose: 650 mg Heparin Sodium (Porcine) (Heparin) 5,000 units SC Q12 [facility] PRN Reason: Protocol Hydromorphone HCl (Dilaudid) 0.5 mg IVP Q4 PRN PRN Reason: Pain, moderate (4-7) Piperacillin Sod/Tazobactam (Sod 3.375 gm/ Sodium Chloride) 100 mls @ 100 mls/ hr IVPB Q6 [facility] Last Admin: 10/17/16 11:00 Dose: 100 mls/hr Sodium Chloride (Sodium Chloride 0.9%) 1,000 mls @ 999 mls/hr IV .Q1H1M [facility] Stop: 10/18/16 09:06 Last Admin: 10/17/16 09:50 Dose: Not Given Dextrose/Sodium Chloride (Dextrose 5%/0.45% Ns 1000 Ml) 1,000 mls @ 110 mls/hr IV .Q9H6M [facility] Stop: 10/18/16 10:07 Last Admin: 10/17/16 10:57 Dose: 110 mls/hr Ketorolac Tromethamine (Toradol) 15 mg IVP Q6 PRN PRN Reason: Pain, moderate (4-7) Ketorolac Tromethamine (Toradol) 30 mg IVP Q6 PRN PRN Reason: Pain, severe (8-10) Last Admin: 10/16/16 17:16 Dose: 30 mg Ondansetron HCl (Zofran Inj) 4 mg IVP Q6 PRN PRN Reason: Nausea/Vomiting Last Admin: 10/14/16 16:06 Dose: 4 mg Pantoprazole Sodium (Protonix Ec Tab) 40 mg PO DAILY [facility] Last Admin: 10/17/16 09:52 Dose: 40 mg - Labs Labs: 10/17/16 07:00 10/17/16 07:00 PT 11.9 Seconds (9.8-13.1) 10/15/16 05:30 INR 1.2 (0.9-1.2) 10/15/16 05:30 APTT 28.4 Seconds (25.6-37.1) 10/14/16 12:33 - Constitutional Appears: Non-toxic, No Acute Distress - Head Exam Head Exam: ATRAUMATIC, NORMAL INSPECTION, NORMOCEPHALIC - Eye Exam Eye Exam: EOMI, Normal appearance, PERRL Pupil Exam: NORMAL ACCOMODATION - ENT Exam ENT Exam: Mucous Membranes Moist, Normal Exam - Neck Exam Neck Exam: Full ROM, Normal Inspection - Respiratory Exam Respiratory Exam: Clear to Ausculation Bilateral. absent: Rales, Rhonchi, Wheezes - Cardiovascular Exam Cardiovascular Exam: REGULAR RHYTHM, RRR, +S1, +S2. absent: JVD - GI/Abdominal Exam GI & Abdominal Exam: Soft, Normal Bowel Sounds. absent: Distended, Guarding, Tenderness, Rebound - Rectal Exam Rectal Exam: Deferred - Extremities Exam Extremities Exam: Full ROM, Normal Capillary Refill, Normal Inspection. absent : Calf Tenderness, Pedal Edema - Back Exam Back Exam: NORMAL INSPECTION - Neurological Exam Neurological Exam: Alert, Awake, CN II-XII Intact, Oriented x3 - Psychiatric Exam Psychiatric exam: Normal Affect, Normal Mood - Skin Skin Exam: Dry, Intact, Normal Color, Warm Assessment and Plan - Assessment and Plan (Free Text) Assessment: 25 y/o F with PMH DVT post R ankle surgery and cholelithiasis presented to ED with RUQ and epigastric pain that started 3 days ago and is constant US showed cholelithiasis and cholecystitis . Patient admitted to med-surg , kept NPO, started on IVF , Zosyn IV and pain management .Surgery consulted. Her bilirubin trended up so GI was consulted and MRCp ordered. MRCP showed no CBD stone At present patient doing well, pain free but bilirubin still elevated.Surgery planning for lap cholecystectomy once bilirubin trends down. patient and mom would like to leave the hospital to follow up with their surgeon in [place] once she feels a little better.Feeling dizzy today 1. Acute Cholelystitis and cholelithiasis stable, pain better Abd Us showed cholelithiasis and cholecystitis Total bilirubin trended up from 1 to 5.2 - 5.4 and 5.6 today MRCP showed no CBD stone continue pain mangement, IVF and Zosyn Iv GI consulted . Since patient has no CBD stone no need for ERCP. Most likely she passed the stone As per surgery will need to monitor closely LFT-s and once bilirubin is close to normal patient will need cholecystectomy Hepatitis panel is negative continue liquid diet Patient would like to go home once she feels better 2. Elevated LFTs Could be secondary to the above hepatitis panel is negative 3. Prophylactic measure SCD
--- NOTE | 2016-10-17 15:27 | CP.PCM.PN ---
Subjective - Date & Time of Evaluation Date of Evaluation: 10/17/16 Time of Evaluation: 15:30 - Subjective Subjective: c/o slight dizziness Objective - Vital Signs/Intake and Output Vital Signs (last 24 hours): Temp Pulse Resp BP Pulse Ox 98.6 F 79 20 99/61 L 97 10/17/16 08:18 10/17/16 08:18 10/17/16 08:18 10/17/16 08:18 10/17/16 08:18 - Medications Medications: Current Medications Acetaminophen (Tylenol 325mg Tab) 650 mg PO Q4 PRN PRN Reason: Fever >100.4 F Last Admin: 10/15/16 16:52 Dose: 650 mg Heparin Sodium (Porcine) (Heparin) 5,000 units SC Q12 [facility] PRN Reason: Protocol Hydromorphone HCl (Dilaudid) 0.5 mg IVP Q4 PRN PRN Reason: Pain, moderate (4-7) Piperacillin Sod/Tazobactam (Sod 3.375 gm/ Sodium Chloride) 100 mls @ 100 mls/ hr IVPB Q6 [facility] Last Admin: 10/17/16 11:00 Dose: 100 mls/hr Sodium Chloride (Sodium Chloride 0.9%) 1,000 mls @ 999 mls/hr IV .Q1H1M [facility] Stop: 10/18/16 09:06 Last Admin: 10/17/16 09:50 Dose: Not Given Dextrose/Sodium Chloride (Dextrose 5%/0.45% Ns 1000 Ml) 1,000 mls @ 110 mls/hr IV .Q9H6M [facility] Stop: 10/18/16 10:07 Last Admin: 10/17/16 10:57 Dose: 110 mls/hr Ketorolac Tromethamine (Toradol) 15 mg IVP Q6 PRN PRN Reason: Pain, moderate (4-7) Ketorolac Tromethamine (Toradol) 30 mg IVP Q6 PRN PRN Reason: Pain, severe (8-10) Last Admin: 10/16/16 17:16 Dose: 30 mg Ondansetron HCl (Zofran Inj) 4 mg IVP Q6 PRN PRN Reason: Nausea/Vomiting Last Admin: 10/14/16 16:06 Dose: 4 mg Pantoprazole Sodium (Protonix Ec Tab) 40 mg PO DAILY [facility] Last Admin: 10/17/16 09:52 Dose: 40 mg - Labs Labs: 10/17/16 07:00 10/17/16 07:00 PT 11.9 Seconds (9.8-13.1) 10/15/16 05:30 INR 1.2 (0.9-1.2) 10/15/16 05:30 APTT 28.4 Seconds (25.6-37.1) 10/14/16 12:33 - GI/Abdominal Exam GI & Abdominal Exam: Soft, Tenderness, Normal Bowel Sounds Assessment and Plan - Assessment and Plan (Free Text) Assessment: 25 yo female with biliary colic mrcp negative bili elevated trend lft surgical input
[2016-10-17 15:52] VITALS: RESP 18; O2SAT 98
[2016-10-18] MEDS: Piperacillin/Tazobact 3.375 GM in Sodium Chloride 0.9% 100 ML IVPB SCH (04:53)
[2016-10-18] MEDS: Dextrose 5%/0.45% NS 1,000 ML IV SCH (05:03)
[2016-10-18 07:43] VITALS: BP 100/63; PULSE 72; TEMP 98.3
[2016-10-18 08:36] LABS: HEMATOCRIT 35.1 % (34.0-47.0); MEAN CELL VOLUME 90.9 fl (81.0-99.0); MEAN CORPUSCULAR HEMOGLOBIN 31.5 pg (27.0-31.0); MEAN CORPUSCULAR HGB CONC 34.7 g/dL (33.0-37.0); RED CELL DISTRIBUTION WIDTH 12.7 % (11.5-14.5); WHITE BLOOD COUNT 3.2 K/uL (4.8-10.8)
[2016-10-18 08:40] LABS: ALB/GLOB RATIO 1.4 (1.0-2.1); ALKALINE PHOSPHATASE 179 U/L (38-126); ALT/SGPT 192 U/L (9-52); AST/SGOT 122 U/L (14-36); BILIRUBIN,TOTAL 5.1 mg/dl (0.2-1.3); CALCIUM 8.8 mg/dL (8.4-10.2); CARBON DIOXIDE 20 mmol/L (22-30); CHLORIDE 108 mmol/L (98-107); GFR AFRICAN-AMERICAN > 60; GLUCOSE,RANDOM 127 mg/dL (65-105); POTASSIUM 3.6 MMOL/L (3.6-5.0); SODIUM 141 mmol/l (132-148); TOTAL PROTEIN 6.6 G/DL (6.3-8.2)
[2016-10-18 08:47] LABS: BLOOD UREA NITROGEN < 2 mg/dl (7-17)
[2016-10-18] MEDS: Pantoprazole 40 mg EC Tab PO SCH (08:52)
--- NOTE | 2016-10-18 09:32 | CP.PCM.DIS ---
Provider - Provider Date of Admission: 10/14/16 11:32 Attending physician: Santo Ford MD Time Spent in preparation of Discharge (in minutes): 30 Hospital Course - Lab Results Lab Results: Most Recent Lab Values WBC 3.2 K/uL (4.8-10.8) L 10/18/16 06:30 RBC 3.86 Mil/uL (3.80-5.20) 10/18/16 06:30 Hgb 12.2 g/dL (12.0-16.0) 10/18/16 06:30 Hct 35.1 % (34.0-47.0) 10/18/16 06:30 MCV 90.9 fl (81.0-99.0) 10/18/16 06:30 MCH 31.5 pg (27.0-31.0) H 10/18/16 06:30 MCHC 34.7 g/dL (33.0-37.0) 10/18/16 06:30 RDW 12.7 % (11.5-14.5) 10/18/16 06:30 Plt Count 188 K/uL (130-400) 10/18/16 06:30 MPV 8.3 fl (7.2-11.7) 10/17/16 07:00 Neut % (Auto) 55.8 % (50.0-75.0) 10/17/16 07:00 Lymph % (Auto) 31.2 % (20.0-40.0) 10/17/16 07:00 [place] % (Auto) 10.6 % (0.0-10.0) H 10/17/16 07:00 Eos % (Auto) 1.9 % (0.0-4.0) 10/17/16 07:00 Baso % (Auto) 0.5 % (0.0-2.0) 10/17/16 07:00 Neut # 2.1 K/uL (1.8-7.0) 10/17/16 07:00 Lymph # 1.2 K/uL (1.0-4.3) 10/17/16 07:00 [place] # 0.4 K/uL (0.0-0.8) 10/17/16 07:00 Eos # 0.1 K/uL (0.0-0.7) 10/17/16 07:00 Baso # 0.0 K/uL (0.0-0.2) 10/17/16 07:00 PT 11.9 Seconds (9.8-13.1) 10/15/16 05:30 INR 1.2 (0.9-1.2) 10/15/16 05:30 APTT 28.4 Seconds (25.6-37.1) 10/14/16 12:33 pO2 30 mm/Hg (30-55) 10/14/16 11:26 VBG pH 7.35 (7.32-7.43) 10/14/16 11:26 VBG pCO2 44 mmHg (40-60) 10/14/16 11:26 VBG HCO3 22.6 mmol/L 10/14/16 11:26 VBG Total CO2 25.7 mmol/L (22-28) 10/14/16 11:26 VBG O2 Sat (Calc) 62.0 % (40-65) 10/14/16 11:26 VBG Base Excess -1.5 mmol/L (0.0-2.0) L 10/14/16 11:26 VBG Potassium 4.1 mmol/L (3.6-5.2) 10/14/16 11:26 Sodium 139.0 mmol/L (132-148) 10/14/16 11:26 Chloride 107.0 mmol/L (98-107) 10/14/16 11:26 Glucose 80 mg/dL (65-105) 10/14/16 11:26 Lactate 0.7 mmol/L (0.7-2.1) 10/14/16 11:26 FiO2 21.0 % 10/14/16 11:26 Sodium 141 mmol/l (132-148) 10/18/16 06:30 Potassium 3.6 MMOL/L (3.6-5.0) 10/18/16 06:30 Chloride 108 mmol/L (98-107) H 10/18/16 06:30 Carbon Dioxide 20 mmol/L (22-30) L 10/18/16 06:30 Anion Gap 17 (10-20) 10/18/16 06:30 BUN < 2 mg/dl (7-17) L 10/18/16 06:30 Creatinine 0.6 mg/dL (0.7-1.2) L 10/18/16 06:30 Est GFR ( Amer) > 60 10/18/16 06:30 Est GFR (Non-Af Amer) > 60 10/18/16 06:30 Random Glucose 127 mg/dL (65-105) H 10/18/16 06:30 Calcium 8.8 mg/dL (8.4-10.2) 10/18/16 06:30 Total Bilirubin 5.1 mg/dl (0.2-1.3) H 10/18/16 06:30 Direct Bilirubin 4.9 mg/ml (0.0-0.4) H 10/17/16 07:00 AST 122 U/L (14-36) H D 10/18/16 06:30 ALT 192 U/L (9-52) H 10/18/16 06:30 Alkaline Phosphatase 179 U/L (38-126) H 10/18/16 06:30 Total Protein 6.6 G/DL (6.3-8.2) 10/18/16 06:30 Albumin 3.8 g/dL (3.5-5.0) 10/18/16 06:30 Globulin 2.8 gm/dL (2.2-3.9) 10/18/16 06:30 Albumin/Globulin Ratio 1.4 (1.0-2.1) 10/18/16 06:30 Lipase 115 U/L (23-300) 10/15/16 18:10 Venous Blood Potassium 4.1 mmol/L (3.6-5.2) 10/14/16 11:26 Hepatitis A IgM Ab Negative (NEGATIVE) 10/15/16 13:38 Hep Bs Antigen Negative (NEGATIVE) 10/15/16 13:38 Hep B Core IgM Ab Negative (NEGATIVE) 10/15/16 13:38 Hepatitis C Antibody Negative (NEGATIVE) 10/15/16 13:38 - Hospital Course Hospital Course: 25 y/o F with PMH DVT post R ankle surgery and cholelithiasis presented to ED with RUQ and epigastric pain that started 3 days ago and is constant US showed cholelithiasis and cholecystitis . Patient admitted to med-surg , kept NPO, started on IVF , Zosyn IV and pain management .Surgery consulted. Her bilirubin trended up so GI was consulted and MRCp ordered. MRCP showed no CBD stone At present patient doing well, pain free but bilirubin still elevated.Surgery planning for lap cholecystectomy once bilirubin trends down. patient and mom would like to leave the hospital to follow up with their surgeon in [place] once she feels a little better.Feeling dizzy today 1. Acute Cholelystitis and cholelithiasis stable, pain better Abd Us showed cholelithiasis and cholecystitis Total bilirubin trended up from 1 to 5.2 - 5.4 and 5.6 today MRCP showed no CBD stone continue pain mangement, IVF and Zosyn Iv GI consulted . Since patient has no CBD stone no need for ERCP. Most likely she passed the stone As per surgery will need to monitor closely LFT-s and once bilirubin is close to normal patient will need cholecystectomy Hepatitis panel is negative ADVANCE DIET SLOWLY 2. Elevated LFTs Could be secondary to the above hepatitis panel is negative 3. Prophylactic measure SCD Discharge Exam - Head Exam Head Exam: ATRAUMATIC, NORMAL INSPECTION, NORMOCEPHALIC - Eye Exam Eye Exam: EOMI, Normal appearance, PERRL Pupil Exam: NORMAL ACCOMODATION - ENT Exam ENT Exam: Mucous Membranes Moist, Normal Oropharynx - Respiratory Exam Respiratory Exam: Clear to PA & Lateral - Cardiovascular Exam Cardiovascular Exam: RRR, +S1, +S2 - GI/Abdominal Exam GI & Abdominal Exam: Normal Bowel Sounds, Soft. absent: Organomegaly, Tenderness - Extremities Exam Extremities exam: normal capillary refill, pedal pulses present - Back Exam Back exam: absent: CVA tenderness (L), CVA tenderness (R) - Neurological Exam Neurological exam: Alert, Oriented x3 - Psychiatric Exam Psychiatric exam: Normal Affect, Normal Mood - Skin Skin Exam: Dry, Normal Color Discharge Plan - Discharge Medications Prescriptions: Ciprofloxacin [Cipro] 500 mg PO BID #14 tab Metronidazole [Flagyl] 500 mg PO TID #21 tablet oxyCODONE/Acetaminophen [Percocet 5/325 mg Tab] 1 ea PO Q6 PRN #20 tab PRN Reason: Pain, Severe (8-10) - Follow Up Plan Condition: FAIR Disposition: HOME/ ROUTINE Instructions: Gallstones (DC) Additional Instructions: FOLLOW UP PCP WITHIN ONE WEEK FOLLOW UP WITH YOUR GI DOCTOR WITHIN ONE WEEK RETURN TO ANY ER IF CONDITION RETURNS OR WORSENS
== END 2016-10-18 11:05 | disposition home or self-care (01) | DRG 446 ==
LOC: H.ER 07:08 → H.ERHOLD 11:32 → H.MEDSURG1 13:31
PROVIDERS: ADMIT Family Medicine; ATTEND Family Medicine
DX: K80.00 Calculus of gallbladder with acute cholecystitis without obstruction (principal); K59.00 Constipation, unspecified; Z53.8 Procedure and treatment not carried out for other reasons; R79.89 Other specified abnormal findings of blood chemistry; R42 Dizziness and giddiness; Z86.718 Personal history of other venous thrombosis and embolism; Z90.49 Acquired absence of other specified parts of digestive tract